=== PATIENT | female | born 2000 | race Two or more races ===

== ENCOUNTER 2024-05-24 15:28 | Emergency (ER) | payer OTHER ==
[~2024-05-24] VITALS: Ht 162.6 cm; Wt 59.1 kg
[2024-05-24] MEDS ORDERED: LIDO700A32 TOP (17:19)
[2024-05-24] MEDS ORDERED: CYCL-1 PO (17:19)
[2024-05-24] MEDS: dexamethasone sod phosphate 10mg/ml inj PO STA (17:23)
[2024-05-24] MEDS: cyclobenzaprine 10mg tablet PO ONE (17:23)
[2024-05-24] MEDS: ketorolac trometh. 30mg/ml inj. IM ONE (17:25)
[2024-05-24 17:39] VITALS: BP 102/64; PULSE 72; RESP 15; TEMP 97.9; O2SAT 98
== END 2024-05-24 17:40 | disposition home or self-care (01) ==
LOC: ER 15:29
DX: S39.012A Strain of muscle, fascia and tendon of lower back, initial encounter (principal); V89.2XXA Person injured in unspecified motor-vehicle accident, traffic, initial encounter; Y93.89 Activity, other specified; Y92.89 Other specified places as the place of occurrence of the external cause; Y99.8 Other external cause status
CPT/HCPCS: 72110; 96372; 99283; J1100; J1885